=== PATIENT | female | born 1990 | race Caucasian/White ===

== ENCOUNTER 2018-04-24 19:22 | Emergency (ER) | payer OTHER ==
[~2018-04-24] VITALS: Ht 175.3 cm; Wt 105.5 kg
[~2018-04-24 19:22] MED LIST: ALBUTEROL0.09 MG/A1 IH; AMOXICILLIN 50500 MG PO; NO HOME MEDICATIONS; NORCO 325 MG-51 TAB PO; ZITHROMAX 250M250 MG PO
[2018-04-24] MEDS ORDERED: RT ADVAIR 128 DISKUS IH (19:45)
[2018-04-24] MEDS ORDERED: YAZ 28 3 MG-0.01 TAB PO (19:45)
[2018-04-24] MEDS ORDERED: FLEXERIL 1010 MG/TAB PO (20:36)
[2018-04-24] MEDS ORDERED: MOTRIN 800800 MG/TAB PO (20:36)
[2018-04-24 20:51] VITALS: BP 119/65; PULSE 67; TEMP 98.5
== END 2018-04-24 20:50 | disposition home or self-care (01) ==
LOC: COL.ER 19:22
DX: S06.0X0A Concussion without loss of consciousness, initial encounter (principal); S33.9XXA Sprain of unspecified parts of lumbar spine and pelvis, initial encounter; W00.0XXA Fall on same level due to ice and snow, initial encounter; Z79.51 Long term (current) use of inhaled steroids